=== PATIENT | male | born 1995 | race Caucasian/White ===

== ENCOUNTER 2018-07-30 20:09 | Emergency (ER) | payer OTHER ==
[~2018-07-30] VITALS: Ht 175.3 cm; Wt 104.3 kg
[2018-07-30] MEDS ORDERED: TETRACAINE HCL 0.5% OPHT DROP 2 ML BOTTLE ONE (20:22)
[2018-07-30] MEDS ORDERED: FLUORESCEIN SODIUM 1 MG STRIP ONE (20:22)
--- NOTE | 2018-07-30 20:23 | NUR ---
Patient ambulated in ER with stable gait with the c/o right eye injury. Pt states that a mirror fell near him 1.5 hrs [employer]. Upon assessment, patient has redness on right corner of eye. Pt denies visual changes. Safe environment implemented.
[2018-07-30] MEDS ORDERED: PROPARACAINE 0.5% OPHT DROP 15 ML BOTTLE OP ONE (20:30)
[2018-07-30] MEDS ORDERED: SULFACETAMIDE SOD 10% OPHT DR 15 ML BOTTLE OP ONE (20:30)
[2018-07-30] MEDS ORDERED: FLUORESCEIN SODIUM 1 MG STRIP OP ONE (20:30)
--- NOTE | 2018-07-30 20:30 | NUR ---
PROPARACAINE 0.5% NOT GIVEN TETRACAINE 0.5% GIVEN BY ER , WILL CHANGE ORDER
[2018-07-30] MEDS ORDERED: SULFACETAMIDE SOD 10% OPHT DR 15 ML BOTTLE ONE (20:31)
--- NOTE | 2018-07-30 20:35 | NUR ---
Patient discharged to home in stable conditon. Written and verbal after care instructions given. Patient verbalizes understanding of instructions. Patient ambulated out of ER with stable gait, in no distress. All belongings taken.
[2018-07-30 20:36] VITALS: BP 150/89
[2018-08-01] MEDS ORDERED: TETRACAINE HCL 0.5% OPHT DROP 2 ML BOTTLE OP ONE (11:15)
== END 2018-07-30 20:36 | disposition home or self-care (01) ==
LOC: ER 20:09
DX: S05.01XA Injury of conjunctiva and corneal abrasion without foreign body, right eye, initial encounter (principal); Z90.49 Acquired absence of other specified parts of digestive tract; W25.XXXA Contact with sharp glass, initial encounter; Y93.89 Activity, other specified; Y92.89 Other specified places as the place of occurrence of the external cause; Y99.8 Other external cause status
CPT/HCPCS: A4663

== ENCOUNTER 2019-01-21 17:51 | Emergency (ER) | payer OTHER ==
[~2019-01-21] VITALS: Ht 175.3 cm; Wt 89.8 kg
--- NOTE | 2019-01-21 18:49 | NUR ---
pending MD evaluation, KARIME
[2019-01-21] MEDS: HYDROCODONE/APAP 5-325MG TABLET PO ONE (19:13)
[2019-01-21] MEDS ORDERED: HYDROCODONE/APAP 5-325MG TABLET ONE (19:15)
--- NOTE | 2019-01-21 19:17 | NUR ---
Patient discharged to home in stable conditon. Written and verbal after care instructions given. Patient verbalizes understanding of instructions. walked out of er with no distress noted
[2019-01-21 19:18] VITALS: BP 150/99
== END 2019-01-21 19:19 | disposition home or self-care (01) ==
LOC: ER 17:54
DX: S05.02XA Injury of conjunctiva and corneal abrasion without foreign body, left eye, initial encounter (principal); Z90.49 Acquired absence of other specified parts of digestive tract; X58.XXXA Exposure to other specified factors, initial encounter; Y93.89 Activity, other specified; Y92.89 Other specified places as the place of occurrence of the external cause; Y99.8 Other external cause status
CPT/HCPCS: A4663